=== PATIENT | female | born 1965 | race Caucasian/White ===

== ENCOUNTER → 2021-04-22 12:26 | Outpatient (CLI) | payer OTHER, SELFPAY ==
--- NOTE | ~2021-04-22 | DEXA_ITS ---
Bone Density Report Name: Pina Dunlap Age: 55 Sex: Female Ethnicity: White Date of : 1965 Indication: postmenopausal; screening for osteoporosis; Referring Provider: DONI, RADHA Study: Bone densitometry was performed. Exam Date: April 22, 2021 Accession number: [id number] Bone Density: Region BMD T-score Z-score Classification AP Spine (L1-L4) 1.091 0.4 1.4 Normal Femoral Neck (Left) 0.707 -1.3 -0.3 Osteopenia Total Hip (Left) 0.941 0.0 0.6 Normal Femoral Neck (Right) 0.748 -0.9 0.1 Normal Total Hip (Right) 0.926 -0.1 0.5 Normal Total Hip Mean 0.934 -0.1 0.6 Normal World Health Organization criteria for BMD impression classify patients as: Normal (T-score at or above -1.0), Osteopenia (T-score between -1.0 and -2.5), or Osteoporosis (T-score at or below -2.5). 10-year Fracture Risk(1): Major Osteoporotic Fracture 5.4% Hip Fracture 0.6% Reported Risk Factors: [place] (), Neck BMD=0.707, BMI=35.0, smoking (1) FRAX(R) Version 3.08. Fracture probability calculated for an untreated patient. Fracture probability may be lower if the patient has received treatment. Clinical Information Provided by Patient: Smokes Has used the following medications: Vitamin D Patient maximum height was 59.7 Menopause Age: 53 No regular weight bearing exercise Drinks caffeinated beverages Onset of menses at age 18 Number of children 3 Impression: The patient has low bone mass, based on the Left Femoral Neck T-score. The patient has an estimated ten-year risk of hip fracture of 0.6% and an estimated ten-year risk of major fracture of 5.4%, based on the WHO FRAX algorithm. The patient has risk factors, including: smoking. Discussion: BONE DENSITY IS LOW AT ONE OR MORE SKELETAL SITES. This patient's lowest T-score is low at one or more skeletal sites. It meets the World Health Organization's (WHO) criteria for ?low bone mass? (T-score between -1.0 and -2.5). The patient's 10-year risk of fracture as calculated by FRAX is less than the threshold where pharmacological therapy is recommended by the National Osteoporosis Foundation (NOF). However, all treatment decisions require clinical judgment and consideration of individual patient factors, including patient preferences, comorbidities, previous drug use, risk factors not captured in the FRAX model (e.g., frailty, falls, vitamin D deficiency, increased bone turnover, interval significant decline in bone density) and possible under or overestimation of fracture risk by FRAX. The patient should follow a healthful lifestyle (good nutrition with adequate calcium and vitamin D, and appropriate weight-bearing exercise). Follow-Up: Consider repeating this study in 2 to 3 years to reassess this patient's status, or sooner if there is some new
== END ==
PROVIDERS: Visit Provider Nurse Practitioner
DX: Z78.0 Asymptomatic menopausal state (principal); M85.852 Other specified disorders of bone density and structure, left thigh
CPT/HCPCS: 77080

== ENCOUNTER → 2021-12-06 10:53 | Outpatient (CLI) | payer OTHER, SELFPAY ==
--- NOTE | ~2021-12-06 | CT_ITS ---
EXAMINATION: CT abdomen pelvis wo con DATE: 12/06/2021 11:19 INDICATION: Intra-abdominal mass, swelling TECHNIQUE: Computed tomography (CT) of the abdomen and pelvis was performed without intravenous contr ast. The dose-length product (DLP) was 934.75 mGy-cm. Automated exposure control and iterative recons truction technique were employed. COMPARISON: None FINDINGS: Minimal dependent atelectasis is present in the lung bases. The heart size is normal. Withi n the limitations of noncontrast examination, the liver, pancreas, gallbladder, and right adrenal gla nd are normal. There is a 1.9 cm low-density mass of the left adrenal gland, consistent with an adeno ma. Punctate calcifications in an otherwise normal spleen likely represent healed granulomatous disea se. The kidneys are unremarkable. There is a 22.1 x 14.5 x 19.2 cm cystic abdominal mass which extend s into the pelvis. The mass may arise from the right adnexa. Although limited by the absence of intra venous contrast, there are multiple internal septations, some of which appear to be 3 to 4 mm in thic kness. No pathologically enlarged abdominal or pelvic lymph nodes are identified. There is no free in traperitoneal gas or evidence of bowel obstruction. There is mild lumbar spondylosis. IMPRESSION: 1. Large cystic abdominal and pelvic mass with multiple internal septations, some of which appear to be thickened. Finding could reflect a complex cystic ovarian neoplasm however its origin is difficult to ascertain given its size and the absence of intravenous contrast. Surgical consultation for remov al is recommended. Reviewed, dictated and finalized at location F. IMPRESSION: 1. Large cystic abdominal and pelvic mass with multiple internal septations, so me of which appear to be thickened. Finding could reflect a complex cystic ovar cody neoplasm however its origin is difficult to ascertain given its size and th e absence of intravenous contrast. Surgical consultation for removal is recomme nded.
== END ==
PROVIDERS: PCP Nurse Practitioner; Visit Provider Nurse Practitioner
DX: R19.09 Other intra-abdominal and pelvic swelling, mass and lump (principal)
CPT/HCPCS: 74176

== ENCOUNTER 2022-11-22 09:54 | Outpatient (CLI) | payer OTHER, SELFPAY ==
--- NOTE | ~2022-11-22 | CT_ITS ---
EXAMINATION: CT abdomen wo con DATE: 11/22/2022 10:26 INDICATION: Incisional hernia TECHNIQUE: Computed tomography (CT) of the abdomen and pelvis was performed without intravenous contr ast. The dose-length product was 680.64 mGy-cm. . Automated exposure control and iterative reconstruc tion technique were employed. COMPARISON: CT dated 12/06/2021 FINDINGS: There are patchy groundglass opacities in the lung bases. No significant pleural or pericar dial effusion. There are surgical changes near the cecum. Mild atherosclerosis. There are calcified g ranulomas of the spleen. There is a periumbilical hernia containing nonobstructed bowel. There are wu rgical changes near the cecum. There is atherosclerosis of the aorta without aneurysm. There are calc ified granulomas of the spleen. The pancreas, right adrenal gland and kidneys are unremarkable. There is a stable 1.8 cm low-density right adrenal mass, consistent with adenoma. No free air or free flui d. No acute osseous abnormality. IMPRESSION: 1. Right periumbilical hernia containing nonobstructed bowel. 2: Patchy groundglass opacities of the lung bases which may reflect bronchiolitis, interstitial lung disease and/or infectious/inflammatory process. Reviewed, dictated and finalized at location B. IMPRESSION: 1. Right periumbilical hernia containing nonobstructed bowel. 2: Patchy groundglass opacities of the lung bases which may reflect bronchioli tis, interstitial lung disease and/or infectious/inflammatory process.
== END 2022-11-22 09:55 | disposition home or self-care (01) ==
PROVIDERS: PCP Family Medicine; Visit Provider Surgery
DX: K43.2 Incisional hernia without obstruction or gangrene (principal); K42.9 Umbilical hernia without obstruction or gangrene; R91.8 Other nonspecific abnormal finding of lung field
CPT/HCPCS: 74150

== ENCOUNTER 2023-01-12 07:54 | Outpatient (CLI) | payer OTHER, SELFPAY ==
--- NOTE | 2023-01-12 08:07 | ECG_ITS ---
Measurements Intervals [place] Rate: 80 P: 61 ND: 146 QRS: 31 QRSD: 89 T: 44 QT: 355 QTc: 412 Interpretive Statements SINUS RHYTHM BASELINE ARTIFACT- I, II, III NORMAL ECG NO PREVIOUS ECG AVAILABLE FOR COMPARISON Electronically Signed On 01-12-2023 8:39:34 CDT by Jesús Alexis D.O.
== END 2023-01-12 07:55 | disposition home or self-care (01) ==
LOC: ANHSURGERY 08:00
PROVIDERS: PCP Family Medicine; Visit Provider Surgery
DX: Z01.812 Encounter for preprocedural laboratory examination (principal); Z01.810 Encounter for preprocedural cardiovascular examination; K43.0 Incisional hernia with obstruction, without gangrene
CPT/HCPCS: 36415; 86850; 86900; 86901; 93005

== ENCOUNTER 2023-01-14 00:18 | Day surgery (SDC) | payer OTHER, SELFPAY ==
[2023-01-05 14:47] VITALS: BMI 38.0
--- NOTE | 2023-01-05 15:02 | PC.NURSE ---
Report to the Outpatient Waiting Room, entrance under the green pavilion located off [facility], at 0600 on 01/14/23. Planned Procedure Time: 0730. Time changes happen often and if your time is changed the preop area will call you the afternoon before. - You and your visitor will be asked to self-screen and do not enter if you have any COVID symptoms. - A mask is optional within the hospital at this time. Patients may have clear liquids (water, carbonated beverages, clear teas, apple juice) until 3 hours prior to surgery with a maximum of 20 ounces. - No food from midnight until time of surgery. Take the following medications with a SIP of water the morning of surgery: SERTRALINE DO NOT STOP ANY OF YOUR OTHER PRESCRIPTION MEDICATIONS PRIOR TO SURGERY ?EXCEPT THE FOLLOWING Medications to discontinue per physician VITAMINS Date to take last dose 3 DAYS PRIOR TO SURGERY Please no make-up, nail brazilian, hairspray, perfume, deodorant, or body powder the day of surgery. No jewelry (including any body piercings) or valuables the day of surgery, leave them at home. Please take a shower or bath the night before, or the morning of, surgery with Hibiclens (Chlorhexidine gluconate 4%). Wear comfortable, loose fitting clothing. Children are encouraged to wear pajamas. - Jewelry must be removed prior to entering the operating room. Rings and piercings that are not removed may be cut off. - The hospital will not accept responsibility for valuables. - Please leave all valuables, including medications, at home the day of surgery. If you are going home after surgery, a licensed lunch truck driver must drive you home. - NO public transportation without another adult if you receive anesthesia. - We recommend that an adult stay with you for 24 hours following discharge. - We also recommend that you do not drive, make important decision, drink alcoholic beverages, or take any drugs that were not prescribed by your health care provider for at least 24 hours after your discharge time. Follow any additional instructions given to you from your surgeon. If you or anyone in your household have experienced Covid symptoms in the past week, please notify your surgeon or the nurse liaison at the phone number below for possible testing. Telephone instructions given to patient and asked if any additional questions and then verbalized understanding. Patient advised to call surgeon office or pre surgery nurse liaison [phone] if any additional questions.
[2023-01-14] VITALS (15 sets, daily range): BP systolic 97–132; BP diastolic 58–96; PULSE 77–103; RESP 16–23; TEMP 36.2–36.7; O2SAT 90–98
[2023-01-14] MEDS: ACETAMINOPHEN 500 MG TABLET 1000 MG PO ×4 (06:41→23:09)
[2023-01-14] MEDS: KETOROLAC 15 MG/ML VIAL (*BKC) IV PUSH (06:43)
[2023-01-14] MEDS: LACTATED RINGERS 1,000 ML 30 ML IV CONT ×2 (06:44→10:02)
--- NOTE | 2023-01-14 06:55 | WPDANESEPPF ---
Anes - Initial Pre Proc Eval Procedure: Operation Date: 01/14/23 07:30 Proposed Procedures p Laparoscopic Incarcerated Incisional Hernia Repair with Mesh, Davinci Assisted - Raciel Donato DO Date/Time: 01/14/23 06:55 Surgeon: Raciel Donato DO Pre Op Diagnosis: Incarcerated Incisional Hernia 6 cm Patient Data Age: 57 Gender: F Height: 1.5 m Weight: 86.4 kg Last Vital Signs Temp 36.3 C L 01/14/23 06:06 Pulse 84 01/14/23 06:06 Resp 16 01/14/23 06:06 BP 114/63 01/14/23 06:06 Pulse Ox 97 01/14/23 06:06 O2 Del Method Room Air 01/14/23 06:06 Allergies Allergy/AdvReac Type Severity Reaction Status Date / Time No Known Allergies Allergy Verified 01/14/23 06:22 Home Medications Medication Instructions Recorded Confirmed Type cholecalciferol (vitamin D3) 125 125 mcg PO DAILY 11/04/22 01/14/23 History mcg (5,000 unit) capsule diphenhydramine HCl 50 mg capsule 50 mg PO QHS 11/04/22 01/14/23 History (Unisom SleepGels) sertraline 100 mg tablet 100 mg PO DAILY 11/04/22 01/14/23 History triamcinolone acetonide 0.1 % 1 applic topical PRN PRN Itching 01/05/23 01/14/23 History topical cream Patient hx anesthesia problems: none Family hx anesthesia problems: none Results Review: All pre-operative results and documents have been reviewed as part of the pre-operative evaluation. [facility] Past Medical History Medical History (Updated 11/18/22 @ 13:01 by Raciel Donato DO) Depression with anxiety Surgical History Surgical History H/O excision of mass adnexal mass H/O: hysterectomy History of delivery Hx of appendectomy Family History Family History Mother Breast cancer Cervical cancer Osteoporosis Skin cancer CKD (chronic kidney disease) Hypertension Father Carcinoma of colon Other Family history of lung cancer Social History Social History Smoking packs per day: 1 Smoking cigarettes per day: 20.0 Years smoked: 25 Smoking pack-years: 25.00 Smoking status: Current every day smoker Tobacco type: cigarettes Second hand tobacco smoke exposure: Yes Alcohol intake: current Alcohol use details: OCCASIONALLY ON WEEKENDS 4-7 DRINKS Substance use: never Substance use type: does not use Lack of Transportation: No Lack of Food: Never True Current Housing: I Have Housing Concerned About Future Housing: No Difficulty Paying Gas/Electric Bills: No Difficulty Paying for Meds: No Currently Unemployed: No Education: High School Diploma/GED Difficulty w/ Childcare or Family Care: No Living arrangements: with family Additional living arrangements comments: currently residing with/caring for elderly mother Occupation/Education: occupation 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 Gender identity (if verbalized by the patient): Female Sexual Orientation (if Verbalized by the Patient): Straight or Heterosexual Spiritual care concerns: No Anes - Eval Final PreProcedure Day of Procedure 01/14/23 06:55 Patient weight: obese Heart: regular rate and rhythm Lungs: clear to auscultation Airway: Mallampati scale class II Neurological: alert and oriented Last oral intake: >/= 8 hours ASA classification: III Emergent: no Anesthetic plan: proceed Anesthesia type and monitoring: general ETT and standard monitoring Results Review: All pre-operative results and documents have been reviewed as part of the pre-operative evaluation. Informed Consent: The patient's anesthetic plan and its attendant risks and benefits were discussed with the patient/family/POA. Questions were solicited and answers provided to the satisfaction of the patient/family/POA.
--- NOTE | 2023-01-14 07:02 | PM.IMHP ---
H&P: HPI History of Present Illness Date/Time: 01/14/23 07:02 Chief Complaint: Incisional hernia Narrative: 57 yo woman presents for incisional hernia repair. She had a large pelvic mass removed 1 yr ago and developed and incisional hernia. CT was reviewed and robotic assisted repair recommended. She reports no changes since last seen in office. Review of Systems Review of Systems: All systems reviewed & are unremarkable except as noted in HPI and below Constitutional: Constitutional: Denies chills, Denies fever(s), Denies headache(s) and Denies weight loss Eyes: Eyes: Denies change in vision ENT: Denies dizziness, Denies headache(s), Denies neck mass and Denies throat swelling Cardiovascular: Cardiovascular: Denies chest pain, Denies lightheadedness and Denies dyspnea Respiratory: Respiratory: Denies cough, Denies dyspnea and Denies wheezing Gastrointestinal: Gastrointestinal: Denies abdominal pain, Denies change in bowel habits, Denies nausea and Denies vomiting Genitourinary: Genitourinary: Denies hematuria and Denies dysuria Musculoskeletal: Musculoskeletal: Reports as per HPI Integumentary/Breasts: Skin/Breast: Reports as per HPI Neurologic: Denies dizziness and Denies headache(s) Allergic/Immunologic: Allergic/Immunologic: Denies throat swelling and Denies wheezing PMF Past Medical History Medical History (Updated 11/18/22 @ 13:01 by Raciel Donato DO) Depression with anxiety Surgical History Surgical History H/O excision of mass adnexal mass H/O: hysterectomy History of delivery Hx of appendectomy Family History Family History Mother Breast cancer Cervical cancer Osteoporosis Skin cancer CKD (chronic kidney disease) Hypertension Father Carcinoma of colon Other Family history of lung cancer Social History Social History Smoking packs per day: 1 Smoking cigarettes per day: 20.0 Years smoked: 25 Smoking pack-years: 25.00 Smoking status: Current every day smoker Tobacco type: cigarettes Second hand tobacco smoke exposure: Yes Alcohol intake: current Alcohol use details: OCCASIONALLY ON WEEKENDS 4-7 DRINKS Substance use: never Substance use type: does not use Lack of Transportation: No Lack of Food: Never True Current Housing: I Have Housing Concerned About Future Housing: No Difficulty Paying Gas/Electric Bills: No Difficulty Paying for Meds: No Currently Unemployed: No Education: High School Diploma/GED Difficulty w/ Childcare or Family Care: No Living arrangements: with family Additional living arrangements comments: currently residing with/caring for elderly mother Occupation/Education: occupation 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 Gender identity (if verbalized by the patient): Female Sexual Orientation (if Verbalized by the Patient): Straight or Heterosexual Spiritual care concerns: No Meds Home Medications and Allergies Home Medications Medication Instructions Recorded Confirmed Type cholecalciferol (vitamin D3) 125 125 mcg PO DAILY 11/04/22 01/14/23 History mcg (5,000 unit) capsule diphenhydramine HCl 50 mg capsule 50 mg PO QHS 11/04/22 01/14/23 History (Unisom SleepGels) sertraline 100 mg tablet 100 mg PO DAILY 11/04/22 01/14/23 History triamcinolone acetonide 0.1 % 1 applic topical PRN PRN Itching 01/05/23 01/14/23 History topical cream Allergies Allergy/AdvReac Type Severity Reaction Status Date / Time No Known Allergies Allergy Verified 01/14/23 06:22 Vital Signs Vital Signs - 24 hr 01/14/23 06:06 Temperature 36.3 C L Pulse Rate 84 Respiratory Rate 16 Blood Pressure 114/63 Pulse Oximetry 97 Oxygen Delivery Room Air Exam Const: General: no acute distre
--- NOTE | 2023-01-14 07:05 | WPDHPUPDATE1 ---
History and Physical Update Update Date/Time: 01/14/23 07:05 History and Physical has been reviewed, including an updated exam of the patient. There are NO changes in the patient's condition. Risks, benefits, and alternatives have been discussed and questions answered. Patient agrees to proceed with procedure.
[2023-01-14] MEDS: ceFAZolin 2 GM/D5W 50 ML 2 GM/50 ML BAG IVPB ×3 (07:19→23:08)
[2023-01-14] MEDS: BUPIVACAINE/EPINEPHRINE 0.5% 50 ML VIAL 30 ML INFILTRATE (07:58)
--- NOTE | 2023-01-14 10:02 | W.PM.PROC2 ---
Procedure Note - Detailed Date of Procedure 01/14/23 Pre-op Diagnosis Incarcerated Incisional Hernia Post-op Diagnosis Same (12 cm Incarcerated incisional hernia) Procedure Performed Laparoscopic 12 cm incarcerated incisional hernia repair with mesh, da Melanie assisted Surgeon Raciel Donato DO Anesthesia General and Local (0.5% bupivacaine with epinephrine) Indications This is a 57-year-old woman who presented to the office with complaints of a large bulge near her umbilicus. She had a history of open pelvic mass excision 1 year ago and within several months began noticing a large bulge. A CT was obtained and this showed evidence of a large incisional hernia containing bowel. This was not reducible on exam. Discussions were made with the patient about treatment options and decision was made to proceed with robotic assisted laparoscopic incarcerated incisional hernia repair with mesh. Findings Laparoscopic incarcerated incisional hernia repair was performed. It patient had multiple adhesions around the abdominal cavity and a loop of small bowel going up into the hernia. The adhesions and small bowel were reduced from within the hernia defect. The patient actually had multiple smaller hernia defects just above the larger hernia. The larger hernia measured 6 cm x 7 cm and the several smaller hernias just above measured 12 cm from the superior edge of the most cephalad hernia to the inferior edge of the most caudad hernia. The hernia was closed using #1 Stratafix suture. A 20 cm x [address] mesh was then placed within the abdominal cavity and the mesh was secured to the abdominal wall using a 2 0 V lock running absorbable suture. Description of Procedure Procedure as well as risks, benefits, and alternatives were discussed with the patient. Written consent was obtained and placed in chart prior to procedure. Patient was brought back to surgical suite. She was placed supine on operating table. Time-out was done to confirm patient and procedure. She was then intubated by the anesthesia department. A bump was placed under her left hip, and the bed was flexed slightly to extend the space between her costal margin and iliac crest. Her abdomen was prepped and draped in sterile fashion using chlorhexidine prep. A 5 millimeter incision was made in the left upper quadrant, and a 5 millimeter Optiview trocar was advanced through the abdominal layers under direct visualization. Once inside the abdominal cavity, carbon dioxide insufflation was used to create a pneumoperitoneum. Her abdomen was inspected. An 8 millimeter incision was made in the left lower quadrant, and an 8 millimeter robotic trocar was placed under direct visualization. Another 8 millimeter incision was made in the left lateral abdomen, and an 8 millimeter robotic trocar was placed under direct visualization. 0.5% bupivacaine with epinephrine was infiltrated locally around each of the port sites. The 5 millimeter port was removed, the incision was extended to 12 millimeters, and a 12 millimeter air seal port was placed under direct visualization. A Mateo-Zimmer cone was also used to place an 0-Vicryl simple interrupted suture at this trocar site. The robotic arms were brought up to the patient's bedside and secured to the ports. The camera and instruments were inserted, and I then moved over to the robotic console and took control of the camera and instruments. After careful thorough inspection of the abdominal cavity, I began my dissection at the hernia. The omentum and small bowel was reduced from within the hernia using careful dissection with scissors and cautious electrocautery. I then measured the hernia size. The hernia measured 12 cm vertically by 7 cm wide. The fascia was closed using an 1-Stratafix running suture in a vertical fashion. A Ventralight ST 20 cm x 15 cm mesh was then placed within the abdominal cavity. This was oriented vertically with the mesh cente
[2023-01-14] MEDS: fentaNYL CITRATE INJ (*CRX) 100 MCG/2 ML VIAL 25 MCG IV PUSH ×7 (10:23→11:46)
--- NOTE | 2023-01-14 12:10 | ADMGEN ---
This patient, Pina Dunlap, was admitted to Medical Room 248-. Patient/family oriented to hospital policies and general routines including ID bracelet, bed and alarms, visiting hours, pain management, procedures, bathroom and other care routines, personal items, smoking policy, room service/diet, and visiting hours. Information on how to activate the Rapid Response Team has been discussed. Patient/Family are encouraged to report perceived risks to care and to ask questions if they do not understand what they are told or what they should do.
[2023-01-14] MEDS: LACTATED RINGERS 1,000 ML 100 ML IV CONT (12:23)
[2023-01-14] MEDS: oxyCODONE HCL (*CRX) 5 MG TAB IR 10 MG PO ×2 (12:50→20:27)
[2023-01-14] MEDS: HYDROmorphone HCL INJ (*CRX) 1 MG/ML SYR IV PUSH (23:08)
[2023-01-15 01:25] VITALS: BP 110/56; PULSE 81; RESP 18; TEMP 36.6; O2SAT 91
[2023-01-15] MEDS: oxyCODONE HCL (*CRX) 5 MG TAB IR PO (02:46)
[2023-01-15] MEDS: ACETAMINOPHEN 500 MG TABLET 1000 MG PO ×2 (05:20→11:54)
[2023-01-15] MEDS: diphenhydrAMINE HCl INJ 50 MG/ML VIAL 25 MG IV PUSH (05:20)
[2023-01-15 05:24] VITALS: BP 116/59; PULSE 85; RESP 17; TEMP 37; O2SAT 93
[2023-01-15 05:43] LABS: Hematocrit 37.7 % (37.0-47.0); Mean Corpuscular HGB Conc 31.8 g/dl (32-36); Mean Corpuscular Hemoglobin 30.5 pg (26-34); Mean Corpuscular Volume 95.7 fl (80-100); Mean Platelet Volume 9.6 fl (7.4-10.4); Platelet Count Result 330 k/mm3 (150-375); Red Blood Count 3.94 M/mm3 (4.2-5.4); Red Cell Distribution Width 13.3 % (11.5-14.5); White Blood Count 15.8 K/mm3 (4.5-10.0)
[2023-01-15 05:57] LABS: Anion Gap -1 mmol/L (8-16); Blood Urea Nitrogen 7 mg/dL (7-17); Calcium 8.9 mg/dL (8.4-10.2); Carbon Dioxide 32 mmol/L (22-30); Chloride 103 mmol/L (98-107); Estimated Glomerular Filt Rate > 60; Glucose 101 mg/dL (65-110); Potassium 3.5 mmol/L (3.4-5.0); Sodium 134 mmol/L (137-145)
[2023-01-15] MEDS: ceFAZolin 2 GM/D5W 50 ML 2 GM/50 ML BAG IVPB (06:29)
[2023-01-15] MEDS: oxyCODONE HCL (*CRX) 5 MG TAB IR 10 MG PO ×2 (06:54→11:54)
[2023-01-15] MEDS: polyethylene glycoL 3350 17 GM POWD.PACK PO (09:10)
[2023-01-15] MEDS: SERTRALINE HCL 50 MG TABLET 100 MG PO (09:10)
[2023-01-15] MEDS: ENOXAPARIN 40 MG/0.4 ML SYRINGE SUB-Q (09:10)
[2023-01-15 09:37] VITALS: BP 122/73; PULSE 87; RESP 18; TEMP 36.8; O2SAT 93
--- NOTE | 2023-01-15 11:08 | PM.DS ---
DS: Admitting Diagnosis Discharge Date 01/15/2023 Admitting Diagnosis Incarcerated incisional hernia DS: Discharge Diagnosis Discharge Diagnosis (1) Incisional hernia: Qualifiers: Obstruction and gangrene presence: without obstruction or gangrene Qualified Code(s): K43.2 - Incisional hernia without obstruction or gangrene Code(s): K43.2 - Incisional hernia without obstruction or gangrene Status: Acute (2) Tobacco use: Code(s): Z72.0 - Tobacco use Status: Acute DS: Summary Hospital Course Reason for hospitalization: Recovery after incisional hernia repair Hospital Course: This is a 57-year-old woman who presented with a large incisional hernia. CT was obtained which showed a large incisional hernia containing bowel and omentum. The hernia was not completely reducible on exam. She presented on 01/14/2023 for laparoscopic incarcerated incisional hernia repair with mesh, da Melanie assisted. Surgery was uncomplicated, but due to the large size of the hernia and the difficulty with pain control, she was placed in a bed overnight for extended recovery. Her pain was controlled with IV and oral pain meds initially. Her diet and activity were gradually advanced as tolerated. On postop day 1 she was continued to show gradual improvement with her pain control and was up ambulating with minimal assistance. She felt that her pain was adequately controlled with the oral pain meds at that point and she was otherwise hemodynamically stable. She was discharged on 01/15/2023. Time spent discussing smoking cessation with patient: 3 to 10 minutes Status at Discharge Functional status at discharge: independent ambulation Overall status at discharge: patient is progressing back to baseline Time Spent with Patient Time attestation: Total time spent providing and/or coordinating discharge services: Time spent: Less than 30 minutes Exam Const: General: comfortable and no acute distress Orientation/consciousness: patient oriented x3 Resp: Effort & Inspection: normal respiratory effort Auscultation: clear to auscultation bilaterally Cardio: Rate: regular rate Rhythm: regular rhythm Heart sounds: S1 normal heart sound present and S2 normal heart sound present GI: Inspection: non-distended and incision (Intact with glue) GI Palp: Yes Soft to palpation, Yes Tenderness to palpation present (GI) (Incisional) and No Guarding due to palpation present (GI) DS: Data Data Completed and Pending Labs on day of discharge: Labs from last 24 hours 01/15/23 05:11 WBC 15.8 H RBC 3.94 L Hgb 12.0 Hct 37.7 MCV 95.7 MCH 30.5 MCHC 31.8 L RDW 13.3 Plt Count 330 MPV 9.6 Sodium 134 L Potassium 3.5 Chloride 103 Carbon Dioxide 32 H Anion Gap -1 L BUN 7 Creatinine 0.50 L Estim Creat Clear Calc Not Reportable Estimated GFR > 60 Glucose 101 Calcium 8.9 Discharge Plan Discharge Patient Disposition: Home, Self-Care Discharge Instructions: DISCHARGE INSTRUCTION SHEET FOR HERNIA, GALLBLADDER AND APPENDIX SURGERIES DR. HUBBARD PATIENT TO TAKE HOME 1. May shower, no soaking in bath x 2weeks. 2. Call office for: Wound increasingly painful or bleeding Vomiting Fever of greater than 101 degrees 3. If no bowel movement for three days, take 1 oz. (30 ml) Milk of Magnesia or MiraLax 17g 1 to 2 times daily. 4. No heavy lifting > 10-15 pounds x 8 weeks for hernia repairs 5. No driving for 3 days or while taking narcotic pain medications. 6. Ice to surgical site for 48 hours (30 min on, then 30 min off). 7. Up walking 10-30 minutes three times per day. 8. Resume previous home medications. 9. Follow-up 10-14 days in office for wound check or as previously scheduled. ([id number]) 10. Oral pain medications prescription to be sent to pharmacy. Take Tylenol 500mg every 6 hours and Ibuprofen 600mg every 6 hours for the
== END 2023-01-15 12:45 | disposition home or self-care (01) ==
LOC: ANHSURGERY 05:54 → ANH2MED 11:57
PROVIDERS: PCP Family Medicine; Visit Provider Surgery
PROC: (CPT 49596; principal; 2023-01-14 07:30)
DX: K43.0 Incisional hernia with obstruction, without gangrene (principal); G89.18 Other acute postprocedural pain; F41.8 Other specified anxiety disorders; F17.210 Nicotine dependence, cigarettes, uncomplicated; E66.9 Obesity, unspecified; Z68.38 Body mass index [BMI] 38.0-38.9, adult
CPT/HCPCS: 49596; S2900; 36415; 80048; 85027; 86850; 86900; 86901; 93005; A9270; C1781; J0690; J1100; J1170; J1200; J1650; J1885; J2250; J2405; J2704; J3010; J7030; J7120

== ENCOUNTER 2023-04-01 00:18 | Day surgery (SDC) | payer OTHER, SELFPAY ==
[2023-03-19 10:03] VITALS: BMI 41.1
--- NOTE | 2023-03-31 13:01 | PM.HPGS ---
History of Present Illness History of Present Illness Consent: Risks, benefits, and alternatives have been discussed and questions answered. Patient agrees to proceed with procedure. Chief complaint: hx of colon polyps, family hx colon ca Narrative: Pina Dunlap is a 57 year old female here for colon cancer screening. She has a family history of colon cancer. Review of Systems Review of Systems: All systems reviewed & are unremarkable except as noted in HPI and below PMFSH Past Medical History Medical History Depression with anxiety Surgical History Surgical History H/O excision of mass adnexal mass H/O: hysterectomy History of delivery History of incisional hernia repair laparoscopic 12 cm incarcerated incisional hernia repair with mesh on 01/14/23 Hx of appendectomy Family History Family History Mother Breast cancer Cervical cancer Osteoporosis Skin cancer CKD (chronic kidney disease) Hypertension Father Carcinoma of colon Other Family history of lung cancer Social History Social History Smoking packs per day: 1 Smoking cigarettes per day: 20.0 Years smoked: 20 Smoking pack-years: 20.00 Smoking status: Current every day smoker Tobacco type: cigarettes Second hand tobacco smoke exposure: Yes Alcohol intake: current Drinks per week: 2 Alcohol use details: OCCASIONALLY ON WEEKENDS 4-7 DRINKS Substance use: never Substance use type: does not use Lack of Transportation: No Lack of Food: Never True Current Housing: I Have Housing Concerned About Future Housing: No Difficulty Paying Gas/Electric Bills: No Difficulty Paying for Meds: No Currently Unemployed: No Education: High School Diploma/GED Difficulty w/ Childcare or Family Care: No Living arrangements: with family Additional living arrangements comments: currently residing with/caring for elderly mother Occupation/Education: occupation 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 Gender identity (if verbalized by the patient): Female Sexual Orientation (if Verbalized by the Patient): Straight or Heterosexual Spiritual care concerns: No Meds Home Medications and Allergies Home Medications Medication Instructions Recorded Confirmed Type cholecalciferol (vitamin D3) 125 125 mcg PO DAILY 11/04/22 04/01/23 History mcg (5,000 unit) capsule diphenhydramine HCl 50 mg capsule 50 mg PO QHS 11/04/22 04/01/23 History ([employer] [facility]) sertraline 100 mg tablet 100 mg PO DAILY 11/04/22 04/01/23 History triamcinolone acetonide 0.1 % 1 applic topical PRN PRN Itching 01/05/23 04/01/23 History topical cream Allergies Allergy/AdvReac Type Severity Reaction Status Date / Time No Known Allergies Allergy Verified 04/01/23 06:26 Exam Resp: Auscultation: clear to auscultation bilaterally Cardio: Rate: regular rate Rhythm: regular rhythm GI: GI Palp: Yes Soft to palpation and No Tenderness to palpation present (GI) Assessment and Plan Assessment and plan (1) Colon cancer screening: Code(s): Z12.11 - Encounter for screening for malignant neoplasm of colon Status: Acute Assessment and Plan: Colonoscopy with possible biopsy or polypectomy or cautery or injection of substances.
[2023-04-01 06:15] VITALS: BP 141/75; PULSE 84; RESP 18; TEMP 35.9; O2SAT 97; BMI 37.5
[2023-04-01] MEDS: LACTATED RINGERS 1,000 ML 150 ML IV CONT (06:39)
--- NOTE | 2023-04-01 07:20 | WPDANESEPPF ---
Anes - Initial Pre Proc Eval Procedure: Operation Date: 04/01/23 07:30 Proposed Procedures p Colonoscopy - Jaxon Storm MD Date/Time: 04/01/23 07:20 Surgeon: Jaxon Storm MD Pre Op Diagnosis: hx of colon polyps, family hx colon ca Patient Data Age: 57 Gender: F Height: 1.5 m Weight: 84.2 kg Last Vital Signs Temp 96.7 F L 04/01/23 06:15 Pulse 84 04/01/23 06:15 Resp 18 04/01/23 06:15 BP 141/75 H 04/01/23 06:15 Pulse Ox 97 04/01/23 06:15 O2 Del Method Room Air 04/01/23 06:15 Allergies Allergy/AdvReac Type Severity Reaction Status Date / Time No Known Allergies Allergy Verified 04/01/23 06:26 Home Medications Medication Instructions Recorded Confirmed Type cholecalciferol (vitamin D3) 125 125 mcg PO DAILY 11/04/22 04/01/23 History mcg (5,000 unit) capsule diphenhydramine HCl 50 mg capsule 50 mg PO QHS 11/04/22 04/01/23 History ([employer]) sertraline 100 mg tablet 100 mg PO DAILY 11/04/22 04/01/23 History triamcinolone acetonide 0.1 % 1 applic topical PRN PRN Itching 01/05/23 04/01/23 History topical cream Patient hx anesthesia problems: none Family hx anesthesia problems: none Results Review: All pre-operative results and documents have been reviewed as part of the pre-operative evaluation. FOR[facility]LY [facility], [facility] Past Medical History Medical History Depression with anxiety Surgical History Surgical History H/O excision of mass adnexal mass H/O: hysterectomy History of delivery History of incisional hernia repair laparoscopic 12 cm incarcerated incisional hernia repair with mesh on 01/14/23 Hx of appendectomy Family History Family History Mother Breast cancer Cervical cancer Osteoporosis Skin cancer CKD (chronic kidney disease) Hypertension Father Carcinoma of colon Other Family history of lung cancer Social History Social History Smoking packs per day: 1 Smoking cigarettes per day: 20.0 Years smoked: 20 Smoking pack-years: 20.00 Smoking status: Current every day smoker Tobacco type: cigarettes Second hand tobacco smoke exposure: Yes Alcohol intake: current Drinks per week: 2 Alcohol use details: OCCASIONALLY ON WEEKENDS 4-7 DRINKS Substance use: never Substance use type: does not use Lack of Transportation: No Lack of Food: Never True Current Housing: I Have Housing Concerned About Future Housing: No Difficulty Paying Gas/Electric Bills: No Difficulty Paying for Meds: No Currently Unemployed: No Education: High School Diploma/GED Difficulty w/ Childcare or Family Care: No Living arrangements: with family Additional living arrangements comments: currently residing with/caring for elderly mother Occupation/Education: occupation 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 Gender identity (if verbalized by the patient): Female Sexual Orientation (if Verbalized by the Patient): Straight or Heterosexual Spiritual care concerns: No Anes - Eval Final PreProcedure Day of Procedure 04/01/23 07:20 Patient weight: obese Heart: regular rate and rhythm Lungs: clear to auscultation Airway: Mallampati scale class II Neurological: alert and oriented Last oral intake: >/= 8 hours ASA classification: II Emergent: no Anesthetic plan: proceed Anesthesia type and monitoring: general GIVS and standard monitoring Results Review: All pre-operative results and documents have been reviewed as part of the pre-operative evaluation. Informed Consent: The patient's anesthetic plan and its attendant risks and benefits were discussed with the patient/family/POA. Questions were solicited and answers provided to the satisfaction of the patient/family/POA
[2023-04-01 07:52] VITALS: BP 113/68; PULSE 84; RESP 24; O2SAT 97
[2023-04-01 08:02] VITALS: BP 110/75; PULSE 74; RESP 20; O2SAT 97
[2023-04-01 08:12] VITALS: BP 123/80; PULSE 80; RESP 20; O2SAT 100
== END 2023-04-01 08:48 | disposition home or self-care (01) ==
PROVIDERS: PCP Family Medicine; Visit Provider Internal Medicine Gastroenterology
PROC: 0DJD8ZZ Inspection of Lower Intestinal Tract, Via Natural or Artificial Opening Endoscopic (ICD-10-PCS; CPT 45378; principal; 2023-04-01 07:30)
DX: Z12.11 Encounter for screening for malignant neoplasm of colon (principal); K62.1 Rectal polyp; K63.5 Polyp of colon; K57.30 Diverticulosis of large intestine without perforation or abscess without bleeding; Z80.0 Family history of malignant neoplasm of digestive organs; F41.8 Other specified anxiety disorders; F17.210 Nicotine dependence, cigarettes, uncomplicated; E66.9 Obesity, unspecified; Z68.37 Body mass index [BMI] 37.0-37.9, adult
CPT/HCPCS: 45380; 45385; 88305; J2704; J7120